=== PATIENT | male | born 1955 | race Caucasian/White ===

== ENCOUNTER 2024-06-24 06:17 | Day surgery (SDC) | payer OTHER, SELFPAY ==
[2024-06-07 12:44] VITALS: BMI 24.8
[2024-06-07 13:08] LABS: % Basophils 0.3 % (0-2); % Eosinophils 2.5 % (0-6); % Immature Granulocytes 0.1 % (0-0.5); % Lymphocytes 42.6 % (20.5-51.1); % Monocytes 7.3 % (1.7-9.3); % Neutrophils 47.2 % (42.2-75.2); Absolute Eosinophils 0.2 10^3/uL (0-0.7); Absolute Lymphocytes 2.9 10^3/uL (1.2-3.4); Absolute Monocytes 0.5 10^3/uL (0.1-0.6); Absolute Neutrophils 3.2 10^3/uL (1.4-6.5); Hematocrit 40.5 % (39.0-52.0); Hemoglobin 13.8 g/dL (13.0-18.0); Mean Corp Hgb Conc. 34.1 g/dL (33.0-37.0); Mean Corpuscular Hgb 29.7 pg (27.0-31.0); Mean Corpuscular Volume 87.1 fL (80.0-94.0); Mean Platelet Volume 10.5 fL (7.4-10.4); Nucleated Red Blood Cells % 0 % (-); Platelet Count 257 10^3/uL (130-400); Red Blood Cell Count 4.65 10^6/uL (4.70-6.10); Red Cell Dist. Width 12.5 % (11.5-14.5); White Blood Cell Count 6.7 10^3/uL (4.8-10.8)
[2024-06-07 13:18] LABS: ALT (SGPT) 34 U/L (0-50); AST (SGOT) 26 U/L (17-59); Albumin 4.7 g/dl (3.5-5.0); Alkaline Phosphatase 64 U/L (38-126); Blood Urea Nitrogen 17 mg/dl (9-20); Calcium 9.8 mg/dl (8.4-10.2); Carbon Dioxide 28 mmol/L (22-30); Chloride 103 mmol/L (98-107); Estimated Creatinine Clearance 105 ml/min; Glucose 89 mg/dl (70-99); Potassium 4.7 mmol/L (3.5-5.1); Sodium 140 mmol/L (135-145); Total Bilirubin 0.8 mg/dl (0.2-1.3); Total Protein 7.5 g/dl (6.3-8.2); eGFR > 60.00
[2024-06-07 13:21] LABS: INR 1.26; PT 16.1 Sec (11.4-14.6)
[2024-06-24] VITALS (20 sets, daily range): BP systolic 108–138; BP diastolic 39–89; BMI 23.8
[2024-06-24 09:00] LABS: ACT-LR - POC 234 Seconds (116-155)
--- NOTE | 2024-06-24 09:44 | ITS.CL.ABL ---
Sort Supervisor - Ablation
Ablation
Procedure Report:
ELECTROPHYSIOLOGY ABLATION STUDY
DATE:: June 24, 2024�����������������������������REFERRING: Dr. Jostin Goodwin
INDICATION: Paroxysmal supraventricular tachycardia in the form of atrial fibrillation.��Also history of left atrial flutter
HISTORY: See H and P.��As above
ANTIARRHYTHMIC DRUG: Sotalol 80 mg twice daily
PRE-PROCEDURE ROGERIO: No atrial thrombus on intracardiac ultrasound
PRESENTING RHYTHM: Sinus bradycardia
'TIME-OUT':��called and confirmed.
SEDATION/ANESTHESIA:��provided via the anesthesia department using general anesthesia (LMA).
INTRAVENOUS/ARTERIAL ACCESS:
Right femoral venous - 8Fr
Left femoral venous - 8 Fr, 6 Fr
Ultrasound guidance for bilateral femoral vein access was utilized by me to obtain access with demonstration of normal anatomy
CHADS-VASC Score:
HAS-Bled Score
PROCEDURE:
1.��A decapolar CS catheter was placed within the CS for mapping and pacing.��This was also used as the reference catheter for the 3-D map.
2. The intracardiac ultrasound catheter was positioned in the RA to identify the FO for targeting of transseptal puncture, assist��in identification of the pulmonary vein ostia, monitoring pre and post ablation pulmonary vein flow velocities,
monitoring for 'bubble' formation during RF application as a sign of thermal injury,��and to monitor for pericardial effusion during mapping and ablation procedure.���Left atrial size, LV ejection fraction, and pulmonary vein flows were monitored
pre and post ablation procedure. The other valves were inspected and found to be free of significant regurgitation or stenosis.
3.��Half of the calculated heparin bolus was administered prior to the first transeptal puncture.��Transseptal puncture was performed to diagnose RA and LA pressure so that safety of LA mapping and ablation could be further assessed, and to access
the left atrium and pulmonary veins for mapping and ablation.��This entailed advancing an 16.8 Fr SL-1 sheath, RF wire with dilator into the superior vena cava and withdrawing both (monitoring intracardiac ultrasound, fluoroscopy and tip pressure)
with the tip oriented toward the atrial septum.��The fossa ovalis was engaged (indicated by sudden displacement of the sheath tip as well as tenting of the fossa seen on intracardiac ultrasound).��Left atrial access required a pass with the
Brockenbrough needle extended.��Left atrial catheter position was confirmed by pressure monitoring (RA mean pressure 8 mm Hg and LA mean [id number] mm Hg), LA saturation ( 99 %),��as well as fluoroscopy.��The sheath was advanced over the dilator and
positioned in the left atrium.����The remainder of the calculated heparin bolus was administered and heparin was
infused to maintain ACT at 300 -350 seconds throughout the case.
4.��RA pacing was performed via the proximal decapolar poles and LA pacing was performed via the distal decapolr poles.
5. A quadrapolar catheter was first positioned at the His position for His Bundle recording which was tagged via the 3-D Navex sytem, and then passed to the RVA for RV pacing and recording.
6. The multipolar catheter and PFA catheter LIPV, LSPV, RSPV and the RIPV.��
7.��Next, a 3-D map was created using Navex.���A 3-D reconstructed CT image was compared to the 3-D Navex map to assist in anatomic interpretation, mapping and ablation.��The CT image and the NavX image were fused.
8. 51 lesions were delivered to the pulmonary veins roof posterior wall and floor of the left atrium. All of and basket poses to the pulmonary veins and flower post to the posterior wall. Entrance exit block was confirmed in all 4 pulmonary veins.
Patient was noninducible for any other tachyarrhythmia post procedure.
9. Normal sinus node and AV devon function noted.
TOTAL FLOURO TIME: 11.6 minutes 112 mgy
TOTAL RF DURATION: 0 minutes
REVERSAL OF HEPARIN: 35 mg of protamine, slow IV administration
COMPLICATIONS:
None
Intracardiac US shows no pericardial effusion post ablation.
SUMMARY:��
Complex left atrial mapping and ablation.
Isolation of all 4 pulmonary veins as well as the left atrial roof floor and posterior wall.
RECOMMENDATIONS:
1. Admit to monitored bed.��
2. Resume anticoagulation
3.� Discontinue sotalol in 1 month
4.��Would consider metoprolol [address] of sotalol in 1 month
Copy to: Dr. Jostin Goodwin
--- NOTE | 2024-06-24 12:40 | PTCARENOTE ---
Rec'd Pt 1045, s/p PVI ablation, A,A+Ox3, denies pain. VSS. Bilat femoral vein dsgs D+I, palp DP pulses bilat.
--- NOTE | 2024-06-24 13:10 | CM ---
Chart reviewed. Patient is independent of ADLS, lives with his in a 2 [address], 1 NEEMA, full flight of stairs up, 0 DME. Plan is for the patient to return home. CM to follow
--- NOTE | 2024-06-24 14:21 | PTCARENOTE ---
Figure of 8 sutures clipped without incident at 1330. Pt assisted OOB at 1400, gisella well, currently sitting OOB in chair.
[2024-06-24] MEDS: FLOMAX PO (14:47)
[2024-06-24] MEDS: XARELTO 20 MG PO (18:08)
--- NOTE | 2024-06-24 21:19 | PTCARENOTE ---
Patient received at change of shift resting in the bed. Offers no complaints at this time. Bilateral groin sites with gauze and tegaderm C/D/I, surrounding area soft to palpation. Bilateral pedal pulses palpable. Sinus rhythm with PACs on telemetry.
Oxygen saturation on room air 98-99%. Plan of care discussed. Call townsend within reach. Care ongoing.
[2024-06-25 02:58] VITALS: BP 112/72
[2024-06-25 03:57] LABS: Hematocrit 37.9 % (39.0-52.0); Mean Corp Hgb Conc. 34.3 g/dL (33.0-37.0); Mean Corpuscular Hgb 29.7 pg (27.0-31.0); Mean Corpuscular Volume 86.7 fL (80.0-94.0); Mean Platelet Volume 10.7 fL (7.4-10.4); Platelet Count 220 10^3/uL (130-400); Red Blood Cell Count 4.37 10^6/uL (4.70-6.10); Red Cell Dist. Width 12.9 % (11.5-14.5)
[2024-06-25 04:25] LABS: Blood Urea Nitrogen 17 mg/dl (9-20); Calcium 9.1 mg/dl (8.4-10.2); Carbon Dioxide 26 mmol/L (22-30); Chloride 105 mmol/L (98-107); Estimated Creatinine Clearance 94 ml/min; Glucose 87 mg/dl (70-99); Potassium 4.5 mmol/L (3.5-5.1); Sodium 137 mmol/L (135-145); eGFR > 60.00
[2024-06-25 05:12] LABS: Hepatitis C Antibody Negative (Negative)
[2024-06-25 07:46] VITALS: BP 123/74
[2024-06-25] MEDS: FLOMAX 0.4 MG PO (08:31)
[2024-06-25] MEDS: TOPROL XL 25 MG PO (08:31)
--- NOTE | 2024-06-25 09:03 | W.PN.CARDCBS ---
Addendum entered and electronically signed by Carlos Alberto Morrissey MD 06/25/24 09:24:
patient seen and examined
Agree with FRONT DESK RECEPTIONIST note and assessment
Agree with FRONT DESK RECEPTIONIST plan
exam:
SR on tele
cor regular no m
lungs ctab
abd soft nt nd
no ext edema
aao x3
non focal neurologically
Impression:
Symptomatic PAF/Aflutter
post PVI/flutter ablation 06/24/24
Mild pericarditis post procedure
Chronic HFpEF
BPH
Plan:
post ablation had some mild chest pressure
groins stable
tele SR with PAC's
continue OAC Eliquis
Stop Sotalol
New start to Metoprolol xl 25mg daily
If pericardial pain returns ok for one time dose of motrin 600mg
Activity restrictions reviewed
f/u apt Dr. Goodwin in 1 mo
Home today
Original Note:
Today's Communication / Plan
-
stable for d/c home
Impression / Plan
-
PCP: Juan Diego Verduzco DO
CDY: Jostin Goodwin MD
Impression:
Symptomatic PAF/Aflutter
post PVI/flutter ablation 06/24/24
Mild pericarditis post procedure
Chronic HFpEF
BPH
Plan:
post ablation had some mild chest pressure
groins stable
tele SR with PAC's
continue OAC Eliquis
Stop Sotalol
New start to Metoprolol xl 25mg daily
If pericardial pain returns ok for one time dose of motrin 600mg
Activity restrictions reviewed
f/u apt Dr. Goodwin in 1 mo
Home today
Progress Note - Director Environmental
Subjective
Date of Service: June 25, 2024
currently denies cp, sob, mild chest tightness last night
Objective
Labs:
06/25/24 03:07
06/25/24 03:08
Labs
Hgb 13.0 g/dL (13.0-18.0) 06/25/24 03:07
Hct 37.9 % (39.0-52.0) L 06/25/24 03:07
Plt Count 220 10^3/uL (130-400) 06/25/24 03:07
PT 16.1 Sec (11.4-14.6) H 06/07/24 12:52
INR 1.26 06/07/24 12:52
Sodium 137 mmol/L (135-145) 06/25/24 03:08
Potassium 4.5 mmol/L (3.5-5.1) 06/25/24 03:08
BUN 17 mg/dl (9-20) 06/25/24 03:08
Creatinine 0.8 mg/dL (0.7-1.3) 06/25/24 03:08
Glucose 87 mg/dl (70-99) 06/25/24 03:08
Vital Signs and I&O:
Vital Signs
Temp Pulse Resp BP Pulse Ox
98.2 F 63 18 123/74 98
06/25/24 07:48 06/25/24 08:31 06/25/24 07:48 06/25/24 08:31 06/25/24 07:48
Vital Signs
Temp Pulse Resp BP Pulse Ox
98.2 F 63 18 123/74 98
06/25/24 07:48 06/25/24 08:31 06/25/24 07:48 06/25/24 08:31 06/25/24 07:48
Intake & Output
06/23/24 06/24/24 06/25/24 06/26/24
06:59 06:59 06:59 06:59
Intake Total 480 / 480
Output Total 625 / 625
Balance -625 / -625 480 / 480
Physical Exam
Physical Exam
NAD, AOX3
S1, S2, RRR
CTAB, non labored, no wheeze
SNTND Bsx4
b/l groins c/d/i, soft, no HT
--- NOTE | 2024-06-25 10:41 | W.DS.TRANS ---
DC Summary - Site Acquisition Manager
-
Discharge Instructions:
Sleep Apnea Risk Low
Discharge Diagnosis/Procedures Atrial fibrillation post ablation
Diet Low Sodium
Driving Restrictions No driving for 24 hours
Instructions:
Stand-Alone Forms: DC Instructions- Cath/EP Lab
Changes to Home Medications: Yes
Discharge Medications:
DC Medications w/original date entered in [employer]
furosemide 20 mg tablet 20 mg PO Q48H 06/01/24
rivaroxaban 20 mg tablet (Xarelto) 20 mg PO HS 06/01/24
tamsulosin 0.4 mg capsule 0.4 mg PO DAILY 06/01/24
ascorbic acid (vitamin C) 500 mg tablet (Vitamin C) 500 mg PO DAILY 06/24/24
ergocalciferol (vitamin D2) 400 unit capsule 10 mcg PO DAILY 06/24/24
metoprolol succinate 25 mg tablet,extended release 24 hr 25 mg PO DAILY #90 tabs 06/25/24
Home Medication Changes
stop sotalol, new to metoprolol
Pending Results: No
[2024-06-25 11:42] VITALS: BP 126/81
--- NOTE | 2024-06-25 12:13 | PTCARENOTE ---
d/c instructions read to pt and pt verbalized understanding. b/l groins cdi. pt offers no complaints at this time. iv and tele removed. pt left w/ belongings from room. pt left via wheelchair w/ staff and .
== END 2024-06-25 12:14 | disposition home or self-care (01) ==
LOC: CATH 06:17
PROVIDERS: Nurse Practitioner Adult Health; ATTENDING PHYSICIAN Internal Medicine Cardiovascular Disease; FAMILY PHYSICIAN Family Medicine; OTHER PHYSICIAN Internal Medicine Cardiovascular Disease
DX: I48.0 Paroxysmal atrial fibrillation (principal); I48.4 Atypical atrial flutter; Z79.899 Other long term (current) drug therapy; Z79.01 Long term (current) use of anticoagulants; I50.32 Chronic diastolic (congestive) heart failure; N40.0 Benign prostatic hyperplasia without lower urinary tract symptoms
CPT/HCPCS: C1732; C1894; C1730; C1892; C1759; 36415; 75572; 80048; 80053; 83735; 85025; 85027; 85347; 85610; 86803; 86850; 86900; 86901; 93005; 93656; 93657; C1733; C1766; Q9967